=== PATIENT | female | born 1995 | race Caucasian/White ===

== ENCOUNTER 2016-11-02 12:19 | Day surgery (SDC) | payer OTHER ==
[2016-11-02] MEDS ORDERED: ACETAMINOPHEN 1,000 MG/100 ML 100 ML IV ONE (12:32)
[2016-11-02] MEDS ORDERED: ceFAZolin 2 GM/50 ML 50 ML IV ONE (12:33)
[2016-11-02] MEDS ORDERED: CELECOXIB 100 MG CAPSULE PO ONE (12:33)
[2016-11-02] MEDS ORDERED: ONDANSETRON 4 MG/2 ML VIAL IVP ONE (14:45)
[2016-11-02] MEDS ORDERED: fentaNYL 100 MCG/2 ML VIAL IVP ONE (14:45)
[2016-11-02] MEDS ORDERED: DEXAMETHASONE 4 MG/ML VIAL IVP ONE (14:45)
[2016-11-02] MEDS ORDERED: ACETAMINOPHEN 1,000 MG/100 ML VIAL IV ONE (14:45)
[2016-11-02] MEDS ORDERED: LIDOCAINE-MPF 2% 5 ML VIAL IM ONE (14:45)
[2016-11-02] MEDS ORDERED: MIDAZOLAM 2 MG/2 ML VIAL IVP ONE (14:45)
[2016-11-02] MEDS ORDERED: PROPOFOL 200 MG/20 ML VIAL IVP ONE (14:45)
[2016-11-02] MEDS ORDERED: ceFAZolin 2 GM/50 ML BAG IV ONE (14:45)
[2016-11-02] MEDS ORDERED: BUPIVACAINE 0.25% PF 30 ML VIAL SUBQ ONE (15:22)
[2016-11-02] MEDS ORDERED: LACTATED RINGERS 1,000 ML IV ONE (15:23)
[2016-11-02] MEDS: fentaNYL 100 MCG/2 ML VIAL ONE ×4 (15:35→15:45)
[2016-11-02] MEDS ORDERED: oxyCOD/ACETAMIN 5 MG/325 MG TABLET PO ONE (16:04)
[2016-11-02] MEDS ORDERED: ONDANSETRON 4 MG/2 ML VIAL ONE (16:11)
== END 2016-11-02 12:20 | disposition home or self-care (01) ==
PROC: 0RSV0ZZ Reposition Left Metacarpophalangeal Joint, Open Approach (ICD-10-PCS; 2016-11-02)
PROC: 0RSX0ZZ Reposition Left Finger Phalangeal Joint, Open Approach (ICD-10-PCS; 2016-11-02)
PROC: 0PPV04Z Removal of Internal Fixation Device from Left Finger Phalanx, Open Approach (ICD-10-PCS; principal; 2016-11-02 13:50)
DX: T85.79XA Infection and inflammatory reaction due to other internal prosthetic devices, implants and grafts, initial encounter (principal); M24.642 Ankylosis, left hand; F17.210 Nicotine dependence, cigarettes, uncomplicated
CPT/HCPCS: 26320; 26340; 81025; A9270; J0131; J0690; J7120

== ENCOUNTER 2017-01-03 15:57 | Emergency (ER) | payer OTHER ==
[2017-01-03] MEDS ORDERED: CEPHALEXIN 250 MG CAPSULE PO STA (16:09)
[2017-01-03] MEDS ORDERED: SULFAMETH/TRIMETH DS 800/160 MG TABLET PO STA (16:10)
[2017-01-03] MEDS ORDERED: CEPHALEXIN 250 MG CAPSULE PO ONE (16:16)
[2017-01-03] MEDS ORDERED: SULFAMETH/TRIMETH DS 800/160 MG TABLET PO ONE (16:16)
== END 2017-01-03 16:27 | disposition home or self-care (01) ==
DX: N61.0 Mastitis without abscess (principal); Z98.890 Other specified postprocedural states; R03.0 Elevated blood-pressure reading, without diagnosis of hypertension; Z87.891 Personal history of nicotine dependence
CPT/HCPCS: 99283; A9270